=== PATIENT | female | born 1985 | race Hispanic/Latino ===

== ENCOUNTER 2019-11-22 09:39 | Outpatient (CLI) | payer OTHER ==
--- NOTE | 2019-11-22 10:56 | ULT ---
OB ULTRASOUND: HISTORY: anatomy. FINDINGS: A single live intrauterine gestation was seen with measurements corresponding to an estimated gestati onal age of 21 weeks and LE[place] at 04/03/2020. The estimated weight measures 378 gm or 13 ounces. biometry: BPD 5.01 cm, 21 weeks 2 days HC 18.35 cm, 20 weeks 6 days AC 15.71 cm, 21 weeks 0 days FL 3.41 cm, 20 weeks 6 days The heart rate measures 146 b.p.m. The placenta is posteriorly located with a partial placenta previa. Cervical length measures 3.8 cm. A 3-vessel cord, cord insertion, kidneys, bladder, stomach, 4-chamber heart, lateral ventricles , cerebellum, spine, lips/nose, upper and lower extremities are visualized. No definite anomal ies are seen. IMPRESSION: 1. Single live intrauterine of 21 weeks estimated gestational age and estimated date of de livery at 04/03/2020. 2. Partial placenta previa. POS: [facility]
== END 2019-11-22 09:40 | disposition home or self-care (01) ==
LOC: BICULT 09:39
PROVIDERS: ATTEND Nurse Practitioner
DX: Z34.82 Encounter for supervision of other normal pregnancy, second trimester (principal); O44.02 Complete placenta previa NOS or without hemorrhage, second trimester; Z3A.21 21 weeks gestation of pregnancy
CPT/HCPCS: 76805

== ENCOUNTER 2020-02-09 10:24 | Outpatient (CLI) | payer OTHER ==
--- NOTE | 2020-02-09 12:11 | ULT ---
ULTRASOUND OBSTETRICAL LIMITED: DATE: 02/09/2020 HISTORY: 34 year old female. ICD-10: "O44.03, placenta previa without hemorrhage in third trimester. Comments: Growth and placental location" FINDINGS: number: bowman lie: Cephalic Maternal cervix: 3.5 cm. Closed. Placenta: Posterior and low-lying. The tip of the placenta is now 2 cm from internal cervical os. No previa. Amniotic fluid volume: SU = 8.5cm heart rate: 140 bpm The following anatomy is visualized, with no evidence of anomalies: Head and four-chamber heart. The rest of the anatomy was not evaluated on current ultrasound. biometry: Biparietal diameter (BPD): 8.3 cm 33 w 2 d Head circumference (HC): 29.7 cm 32 w 6 d Abdominal circumference (AC): 29.3 cm 33 w 2 d Femur length (FL): 5.9 cm 30 w 4 d Average ultrasound age (AUA): 32 w 4 d Estimated date of delivery ([place]): 04/01/2020 Estimated weight (EFW): 1973 g +/- 288 g IMPRESSION: 1) Live 3rd trimester intrauterine gestation. 2) Estimated gestational age of 32 weeks, 4 days 3) Vertex lie. 4) placenta previa has resolved.
== END 2020-02-09 10:25 | disposition home or self-care (01) ==
LOC: BICULT 10:24
PROVIDERS: ATTEND Family Medicine
DX: O44.03 Complete placenta previa NOS or without hemorrhage, third trimester (principal); Z3A.32 32 weeks gestation of pregnancy
CPT/HCPCS: 76815

== ENCOUNTER 2020-03-23 15:01 | Outpatient (CLI) | payer OTHER ==
[2020-03-24 12:06] LABS: SARS-CoV-2 MS2 Positive; SARS-CoV-2 N Gene Negative; SARS-CoV-2 S Gene Negative; SARS-CoV-2 by NAA Not Detected (NotDetected); SARS-CoV-2 orf1ab Negative
== END 2020-03-23 15:02 | disposition home or self-care (01) ==
LOC: LABBT 15:01
PROVIDERS: ATTEND Family Medicine
DX: Z20.828 Contact with and (suspected) exposure to other viral communicable diseases (principal)
CPT/HCPCS: 87635; U0003

== ENCOUNTER 2020-03-27 09:15 | Inpatient (IN) | payer MEDICAID, OTHER, SELFPAY ==
[2020-03-27] MEDS ORDERED: Ondansetron PF 4 MG/2 ML Vial IVP PRN ×2 (09:19→13:52)
[2020-03-27] MEDS ORDERED: Promethazine HCl 25 MG/ML VIAL IM PRN ×2 (09:19→13:52)
[2020-03-27] MEDS ORDERED: Bicitra 30 ML UDCUP PO SCH (09:19)
[2020-03-27] MEDS ORDERED: CEFAZOLIN 2 GM in Premix Bag 1 BAG IVPB SCH (09:19)
[2020-03-27] MEDS ORDERED: hydrALAZINE 20 MG/ML VIAL SLOW IVP PRN (09:19)
[2020-03-27 10:09] LABS: Hemoglobin 10.9 g/dL (12.0-16.0); Mean Corpuscular HGB CONC 33.4 g/dL (32.0-36.0); Mean Corpuscular Volume 92.9 fL (78.0-98.0); Mean Platelet Volume 9.1 fL (7.4-10.4); Platelet Count 191 thou/uL (130-400); White Blood Cell (WBC) Count 9.7 thou/uL (4.8-10.8)
[2020-03-27 10:52] LABS: Syphilis Antibody Nonreactive (Nonreactive); Syphilis Antibody Index 0.84 S/CO (<1.00 Non-Reactive)
[2020-03-27 10:53] LABS: Hep B Surf Ag Non-Reactive S/CO (NonReactive)
[2020-03-27] MEDS: Lactated Ringer's 1,000 ML IV SCH ×3 (11:02→15:47)
[2020-03-27] MEDS ORDERED: Ondansetron PF 4 MG/2 ML Vial ONE (11:53)
[2020-03-27] MEDS ORDERED: Ketorolac Tromethamine 30 MG/ML VIAL ONE (11:53)
[2020-03-27] MEDS ORDERED: Oxytocin 10 UNITS/ML VIAL ONE ×3 (11:53→13:06)
[2020-03-27] MEDS ORDERED: Midazolam HCl 2 mg/2 ml Vial ONE (12:28)
[2020-03-27] MEDS ORDERED: Methylergonovine 0.2 MG/ML VIAL ONE (12:30)
[2020-03-27] MEDS ORDERED: Carboprost 250 MCG/ML AMP ONE ×3 (12:33→12:57)
[2020-03-27] MEDS ORDERED: Tranexamic Acid 1,000 MG/10 ML VIAL ONE ×2 (12:41→12:57)
[2020-03-27] MEDS ORDERED: Misoprostol 200 MCG TAB ONE (12:49)
[2020-03-27 13:50] LABS: Hemoglobin 10.3 g/dL (12.0-16.0); Mean Corpuscular HGB CONC 34.5 g/dL (32.0-36.0); Mean Corpuscular Hemoglobin 31.8 pg (27.0-31.0); Mean Corpuscular Volume 92.1 fL (78.0-98.0); Mean Platelet Volume 8.9 fL (7.4-10.4); Platelet Count 175 thou/uL (130-400); RBC Distribution Width 12.9 % (11.5-14.5); Red Blood Cell (RBC) Count 3.24 mill/uL (4.20-5.40); White Blood Cell (WBC) Count 13.5 thou/uL (4.8-10.8)
[2020-03-27] MEDS ORDERED: L&D-Morphine 4 MG/ML VIAL SLOW IVP PRN (13:51)
[2020-03-27] MEDS ORDERED: HYDROmorphone 2 MG/ML VIAL SLOW IVP PRN (13:51)
[2020-03-27] MEDS ORDERED: Ondansetron HCl/PF 4 MG/2 ML Vial IVP PRN (13:51)
[2020-03-27] MEDS ORDERED: diphenhydrAMINE 50 MG/ML VIAL IVP PRN (13:52)
[2020-03-27] MEDS ORDERED: Naloxone HCl 0.4 mg/ml Vial IVP PRN ×2 (13:52)
[2020-03-27] MEDS ORDERED: Promethazine HCl 25 MG SUPP PR PRN (13:52)
[2020-03-27] MEDS ORDERED: Ketorolac Tromethamine 30 MG/ML VIAL IVP PRN (13:52)
[2020-03-27] MEDS ORDERED: Naloxone HCl 0.4 mg/ml Vial IV PRN (13:52)
[2020-03-27 13:57] LABS: PTT 29.6 sec (22.9-36.1); Prothrombin Time 13.6 sec (12.0-14.7)
[2020-03-27] MEDS ORDERED: Communication Order-Pharmacy FS SCH (14:00)
[2020-03-27] MEDS ORDERED: Ketorolac Tromethamine 30 MG/ML VIAL IVP SCH (14:00)
[2020-03-27] MEDS: Meperidine HCl/PF 25 MG/ML VIAL SLOW IVP PRN ×2 (14:58→22:47)
[2020-03-27] MEDS ORDERED: Meperidine HCl/PF 25 MG/ML VIAL ONE ×2 (14:58→22:46)
[2020-03-27] MEDS ORDERED: Diphenoxylate HCl/Atropine Tablet PO SCH (15:20)
[2020-03-27] MEDS ORDERED: Diphenoxylate HCl/Atropine Tablet PO PRN (19:15)
[2020-03-28 00:31] LABS: Hemoglobin 10.3 g/dL (12.0-16.0); Mean Corpuscular HGB CONC 35.1 g/dL (32.0-36.0); Mean Corpuscular Hemoglobin 31.9 pg (27.0-31.0); Mean Corpuscular Volume 90.9 fL (78.0-98.0); Mean Platelet Volume 9.6 fL (7.4-10.4); Platelet Count 138 thou/uL (130-400); RBC Distribution Width 12.4 % (11.5-14.5); Red Blood Cell (RBC) Count 3.23 mill/uL (4.20-5.40); White Blood Cell (WBC) Count 13.3 thou/uL (4.8-10.8)
[2020-03-28] MEDS ORDERED: hydrALAZINE 20 MG/ML VIAL SLOW IVP PRN (08:08)
[2020-03-28] MEDS ORDERED: Bisacodyl 10 MG SUPP PR PRN (08:08)
[2020-03-28] MEDS ORDERED: Ondansetron PF 4 MG/2 ML Vial IVP PRN (08:08)
[2020-03-28] MEDS ORDERED: Meperidine HCl/PF 25 MG/ML VIAL IM PRN (08:08)
[2020-03-28] MEDS ORDERED: Promethazine HCl 25 MG/ML VIAL IM PRN (08:08)
[2020-03-28] MEDS ORDERED: Adacel (T-DAP) 0.5 ML SYRINGE IM ONE (08:08)
[2020-03-28] MEDS ORDERED: NS / Oxytocin 40 units/1000ml 1,000 ML IV SCH (08:08)
[2020-03-28] MEDS ORDERED: Lanolin Ointment 7 GM TUBE TOP PRN (08:08)
[2020-03-28] MEDS ORDERED: HYDROcodone/Acetaminophen 5/325 mg Tablet PO PRN (08:08)
[2020-03-28] MEDS ORDERED: diphenhydrAMINE 25 MG CAP PO PRN (08:08)
[2020-03-28 08:29] LABS: Mean Corpuscular HGB CONC 33.8 g/dL (32.0-36.0); Mean Corpuscular Hemoglobin 31.6 pg (27.0-31.0); Mean Corpuscular Volume 93.3 fL (78.0-98.0); Platelet Count 147 thou/uL (130-400); RBC Distribution Width 12.7 % (11.5-14.5); Red Blood Cell (RBC) Count 3.47 mill/uL (4.20-5.40)
[2020-03-28] MEDS: Ketorolac Tromethamine 30 MG/ML VIAL IVP SCH ×3 (10:16→21:17)
[2020-03-28] MEDS: Prenatal Vitamin 1 TAB PO SCH (10:17)
[2020-03-28] MEDS: Docusate Calcium (SURFAK) 240 MG CAP PO SCH ×2 (10:17→21:17)
[2020-03-28 13:28] VITALS: BMI 29.7
[2020-03-28] MEDS: Ferrous Sulfate 325 MG TAB PO SCH ×2 (14:35→16:34)
[2020-03-28] MEDS: HYDROcodone/Acetaminophen 5/325 mg Tablet PO PRN ×2 (17:52→18:46)
[2020-03-28] MEDS: Simethicone Chewable 80 MG TAB PO PRN (18:46)
[2020-03-29] MEDS: Ibuprofen 800 MG TAB PO SCH ×3 (05:28→22:26)
[2020-03-29] MEDS: Ferrous Sulfate 325 MG TAB PO SCH ×2 (08:03→16:50)
[2020-03-29] MEDS: Docusate Calcium (SURFAK) 240 MG CAP PO SCH ×2 (08:46→20:18)
[2020-03-29] MEDS: Simethicone Chewable 80 MG TAB PO PRN ×2 (08:46→20:18)
[2020-03-29] MEDS: Prenatal Vitamin 1 TAB PO SCH (08:46)
[2020-03-29] MEDS: HYDROcodone/Acetaminophen 5/325 mg Tablet PO PRN ×2 (08:47→20:19)
[2020-03-30] MEDS: Ibuprofen 800 MG TAB PO SCH ×2 (05:55→14:08)
[2020-03-30 07:55] VITALS: BP 114/65; TEMP 98.2
[2020-03-30] MEDS ORDERED: FLU VACC QS2020-21(6MOS UP)/PF 60 MCG/0.5 ML SYRINGE IM ONE (09:45)
[2020-03-30] MEDS: Ferrous Sulfate 325 MG TAB PO SCH (09:49)
[2020-03-30] MEDS: Prenatal Vitamin 1 TAB PO SCH (09:49)
[2020-03-30] MEDS: Docusate Calcium (SURFAK) 240 MG CAP PO SCH (09:49)
[2020-03-30] MEDS: HYDROcodone/Acetaminophen 5/325 mg Tablet PO PRN (16:28)
--- NOTE | 2020-03-30 22:27 | OP ---
DATE OF PROCEDURE: 03/27/2020 PREOPERATIVE DIAGNOSES: 1. Thirty-nine weeks' . 2. Previous section x2. POSTOPERATIVE DIAGNOSES: 1. Thirty-nine weeks' . 2. Previous section x2. 3. Atonic hemorrhage. PROCEDURE PERFORMED: Scheduled repeat low cervical transverse section. BAKER PAINT: Dr. Serrano. DESCRIPTION OF EVENTS: After informed consent was obtained from the patient, she was taken to the operating room, where spinal anesthesia was administered. She was prepped and draped in the usual sterile fashion. A vertical skin incision was created over her previous scar and carried down to the fascia. Fascia was entered also with a scalpel. The peritoneum was entered simultaneously. The rectus muscle and the peritoneum were divided with Huffman scissors. Bladder blade was inserted. The uterus was entered in a low-transverse fashion. Hysterotomy was extended superolaterally with blunt dissection. Membranes were ruptured with an Allis. vertex was delivered onto the operative field, and the remainder of the infant was delivered uneventfully and atraumatically. The cord was clamped x2 and ligated, and a vigorous male was handed to the staff in attendance. The placenta was expressed using traction on the cord and fundal massage. The uterus was exteriorized and freed of clots and debris. The uterus was immediately extremely atonic. Methergine and Hemabate were given x1 each. The uterus was repaired with a running locking suture of 1 Monocryl. The uterus remained atonic. A second Hemabate was given. Rectal Cytotec was given. TXA was ordered. After repair of the uterus, there was persistent oozing from the left corner that was sutured with a [id number] suture of 0 Vicryl, which was continued with second horizontal imbricating layer. The corner continued to ooze. The left uterine artery was ligated as the bleeding seem to be occurring from the corner of the incision at the ligament, where the ligament attaches to the myometrium. Ligation of the uterine artery reduced but did not completely resolve the bleeding. FloSeal was applied. An intraoperative consultation with Dr. Magallon occurred, who agreed with plan of care. FloSeal was successful in achieving hemostasis. The uterus was returned to the abdomen after copious irrigation and the incision was again inspected and no further bleeding was seen. Seprafilm was applied to the anterior uterine fundus and the repaired uterine incision. The fascia was repaired with a running suture of 0 PDS. A running suture of 0 Vicryl was placed in the subdermal layer to reapproximate the skin which was closed with skin zhane. Sponge and instrument counts were correct x3. She tolerated the procedure well and was taken to Recovery in stable condition with blood products ordered intraoperatively and to be administered in Recovery. FINDINGS: Viable male infant, 8 pounds 5 ounces. COMPLICATIONS: Atonic hemorrhage. ESTIMATED BLOOD LOSS: 1600. Job ID: [id number] MTDD
== END 2020-03-30 16:45 | disposition home or self-care (01) | DRG 787 ==
LOC: L&D 09:15 → 3SW 03-28 10:18
PROVIDERS: ADMIT Family Medicine; ATTEND Family Medicine
PROC: 10D00Z1 Extraction of Products of Conception, Low, Open Approach (ICD-10-PCS; principal; 2020-03-27)
PROC: 30233K1 Transfusion of Nonautologous Frozen Plasma into Peripheral Vein, Percutaneous Approach (ICD-10-PCS; 2020-03-27)
PROC: 30233N1 Transfusion of Nonautologous Red Blood Cells into Peripheral Vein, Percutaneous Approach (ICD-10-PCS; 2020-03-27)
DX: O34.219 Maternal care for unspecified type scar from previous cesarean delivery (principal); O72.1 Other immediate postpartum hemorrhage; Z3A.39 39 weeks gestation of pregnancy; Z37.0 Single live birth
CPT/HCPCS: 36415; 36430; 51702; 85027; 85610; 85730; 86780; 86850; 86900; 86901; 87340; J1885; J2175; J2210; J2250; J2270; J2405; J3490; P9016; P9059